=== PATIENT | female | born 1985 | race Caucasian/White ===

== ENCOUNTER 2017-07-05 14:05 | Emergency (ER) | payer OTHER ==
[2017-07-05 15:18] LABS: Hematocrit 38 % (35-47); Hemoglobin 13.1 g/dl (12.0-16.0); Mean Corpuscular HGB Conc 34 g/dl (31-36); Mean Corpuscular Hemoglobin 31 pg (27-31); Mean Corpuscular Volume 90 fL (80-97); Mean Platelet Volume 8 um3 (7.4-10.4); Red Blood Count 4.27 10^6/ul (4.0-5.4); Red Cell Distribution Width 13 % (10.5-15); White Blood Count 9.2 10^3/ul (3.5-10.8)
[2017-07-05 15:35] LABS: ALT 10 U/L (7-52); AST 17 U/L (13-39); Albumin 4.2 g/dL (3.2-5.2); Alkaline Phosphatase 29 U/L (34-104); Anion Gap 4 mmol/L (2-11); BUN/Creatinine Ratio 19.7 (8-20); Blood Urea Nitrogen 15 mg/dL (6-24); CO2 Carbon Dioxide 27 mmol/L (22-32); Calcium 9.3 mg/dL (8.6-10.3); Chloride 105 mmol/L (101-111); EGFR African American 114.9 (>60); EGFR Non-African American 89.4 (>60); Globulin 2.5 g/dL (2-4); Glucose 82 mg/dL (70-100); Sodium 136 mmol/L (133-145); Total Protein 6.7 g/dL (6.4-8.9)
[2017-07-05 16:02] LABS: TSH (Thyroid Stimulating Horm) 1.79 mcIU/mL (0.34-5.60)
[2017-07-05 16:09] LABS: Urine Bacteria Absent (Absent); Urine Bilirubin Negative (Negative); Urine Glucose Negative (Negative); Urine Nitrite Negative (Negative); Urine Sperm Present (Absent)
[2017-07-05 16:46] VITALS: BP 119/43
--- NOTE | 2017-07-05 22:56 | ED ---
Madhu Dong Gabriel, scribed for Andrea Guevara MD on 07/05/17 at 1513 . Syncope/Near Syncope - HPI Summary HPI Summary: This patient is a 32 year old F presenting to [facility] with a chief complaint of feeling dizziness since [employer]. Patient denies LOC, n/v/d, fever, chills, diaphoresis, melena, and body aches. Patient was upstairs and was watching her friend get an IV and got dizzy and almost passed out. Pt also reports sometimes she gets numbness in one arm and will have slurred speech. - History Of Current Complaint Chief Complaint: EDSyncope Time Seen by Provider: 07/05/17 15:06 Hx Obtained From: Patient Onset/Duration: Resolved Timing: Intermittent Episode Lasting Context: Witnessed Associated Head Trauma: No Aggravating Factor(s): Nothing Alleviating Factor(s): Spontaneous Resolution Associated Signs And Symptoms: Negative - LOC, n/v/d, fever, chills, diaphoresis , melena, and body aches - Allergies/Home Medications Allergies/Adverse Reactions: Allergies Allergy/AdvReac Type Severity Reaction Status Date / Time No Known Allergies Allergy Verified 07/05/17 15:11 PMH/Surg Hx/FS Hx/Imm Hx Previously Healthy: Yes Endocrine/Hematology History: Denies: Hx Anticoagulant Therapy, Hx Blood Disorders, Hx Diabetes, Hx Anemia , Hx Coagulopothy Cardiovascular History: Denies: Hx Hypercholesterolemia, Hx Hypotension, Hx Hypertension, Hx Myocardial Infarction, Hx Pacemaker/ICD Musculoskeletal History: Denies: Hx Fibromyalgia, Hx Gout Sensory History: Denies: Hx Legally Blind EENT History: Denies: Hx Deafness Neurological History: Denies: Hx Migraine Infectious Disease History: No Infectious Disease History: Denies: Traveled Outside the [place] in Last 30 Days - Family History Known Family History: Positive: Cardiac Disease, Diabetes, Other - cancer, HLD - Social History Occupation: Employed Full-time Alcohol Use: None Substance Use Type: Reports: None Smoking Status (MU): Never Smoked Tobacco Review of Systems Negative: Fever, Chills, Skin Diaphoresis Negative: Sore Throat Negative: Chest Pain Negative: Shortness Of Breath, Cough Gastrointestinal: Negative - melena Negative: Abdominal Pain, Vomiting, Diarrhea, Nausea Negative: dysuria, hematuria Negative: Myalgia, Edema Negative: Rash Neurological: Negative - LOC , Other - dizziness All Other Systems Reviewed And Are Negative: Yes Physical Exam - Summary Physical Exam Summary: Constitutional: Well-developed, Well-nourished, Alert. (-) Distressed Skin: Warm, Dry HENT: Normocephalic; Atraumatic Eyes: Conjunctiva normal Neck: Musculoskeletal ROM normal neck. (-) JVD, (-) Stridor, (-) Tracheal deviation Cardio: Rhythm regular, rate normal, Heart sounds normal; Intact distal pulses; The pedal pulses are 2+ and symmetric. Radial pulses are 2+ and symmetric. (-) Murmur Pulmonary/Chest wall: Effort normal. (-) Respiratory distress, (-) Wheezes, (-) Rales Abd: Soft, (-) Tenderness, (-) Distension, (-) Guarding, (-) Rebound Musculoskeletal: (-) Edema Lymph: (-) Cervical adenopathy Neuro: Alert, Oriented x3 Psych: Mood and affect Normal Triage Information Reviewed: Yes Vital Signs On Initial Exam: Initial Vitals Temp Pulse Resp BP Pulse Ox 97.8 F 68 12 107/58 100 07/05/17 14:06 07/05/17 14:06 07/05/17 14:06 07/05/17 14:06 07/05/17 14:06 Vital Signs Reviewed: Yes - [place] Coma Scale Coma Scale Total: 15 Diagnostics - Vital Signs Vital Signs Temp Pulse Resp BP Pulse Ox 07/05/17 15:12 97 07/05/17 15:00 126/48 07/05/17 14:40 61 16 101/50 100 07/05/17 14:26 49 100 07/05/17 14:06 97.8 F 68 12 107/58 100 - Laboratory Result Diagrams: 07/05/17 15:00 07/05/17 15:00 Lab Statement: Any lab studies that have been ordered have been reviewed, and results considered in the medical decision making process. - EKG 1418 Cardiac Rate: Bradycardia EKG Rhythm: Sinus Bradycardia - at 47 BPM EKG Interpretation: No STEMI Course/Dx Assessment/Plan: This patient is a 32 year old F presenting to [facility] with a chief complaint of feeling dizziness since [employer]. Patient denies LOC, n/v/d, fever , chills, diaphoresis, melena, and body aches. Patient was upstairs and was watching her friend get an IV and got dizzy and almost passed out. Pt also reports sometimes she gets numbness in one arm and will have slurred speech. . Patients slurred and other symptoms appear to be related to exhaustion. Test results with no significant abnormalities. Patient will be discharged with follow up from Dr. ZAPATA. The patient is agreeable with this plan. - Diagnoses Provider Diagnoses: Insomnia, Vasovagal response Discharge - Discharge Plan Condition: Stable Disposition: HOME Referrals: Jane Herman NP [Primary Care Provider] - 3 Days Additional Instructions: RETURN TO THE EMERGENCY DEPARTMENT FOR CHANGING OR WORSENING SYMPTOMS The documentation as recorded by the Madhu jewell Gabriel accurately reflects the service I personally performed and the decisions made by me, Andrea Guevara MD.
== END 2017-07-05 16:54 | disposition home or self-care (01) ==
LOC: ED 14:05
DX: R55 Syncope and collapse (principal); G47.00 Insomnia, unspecified
CPT/HCPCS: 36415; 80053; 81003; 81015; 83605; 83735; 84443; 84702; 85025; 87086; 93005; 99282